=== PATIENT | female | born 1995 ===

== ENCOUNTER → 2018-10-11 | Outpatient (CLI) | payer MEDICAID | END | disposition home or self-care (01) | LOC: SUSANVILLE 08:00 | PROVIDERS: ATTEND Internal Medicine Cardiovascular Disease | DX: I07.1 Rheumatic tricuspid insufficiency (principal); R01.1 Cardiac murmur, unspecified; J45.909 Unspecified asthma, uncomplicated | CPT/HCPCS: 93306 ==